=== PATIENT | female | born 1985 | race Caucasian/White ===

== ENCOUNTER 2016-07-29 12:46 | Emergency (ER) | payer BC, OTHER | END 2016-07-29 14:35 | disposition home or self-care (01) | LOC: ED 12:46 | DX: H00.11 Chalazion right upper eyelid (principal); F17.210 Nicotine dependence, cigarettes, uncomplicated; Z79.899 Other long term (current) drug therapy; Z88.8 Allergy status to other drugs, medicaments and biological substances ==